=== PATIENT | male | born 1975 | race Two or more races ===

== ENCOUNTER 2016-11-24 12:33 | Emergency (ER) | payer SELFPAY | END 2016-11-24 20:30 | disposition home or self-care (01) | LOC: D.ER 12:33 | DX: S30.861A Insect bite (nonvenomous) of abdominal wall, initial encounter (principal); W57.XXXA Bitten or stung by nonvenomous insect and other nonvenomous arthropods, initial encounter; Y93.89 Activity, other specified; Y92.89 Other specified places as the place of occurrence of the external cause; L03.311 Cellulitis of abdominal wall ==